=== PATIENT | female | born 1940 | race Caucasian/White ===

== ENCOUNTER 2018-04-22 08:31 | Inpatient (IN) | payer OTHER ==
[2018-04-22] VITALS (9 sets, daily range): BP systolic 124–169; BP diastolic 72–111
[~2018-04-22] VITALS: Ht 162.6 cm; Wt 64.0 kg
[~2018-04-22 08:31] MED LIST: ADVAIR 250/501 DISK IH; ASPIR 8181 M1 PO; ASPIRIN E.C.81 M1 PO; ATIVAN0.5 MG PO; ATIVAN1 MG PO; Aspirin E.C. PO; Ativan PO; B-121500 MCG PO; CARAFATE100 MG/ML PO; CATAPRES0.1 MG PO; COLACE100 MG PO; COREG3.125 M1 PO; COREG6.25 M1 PO; COUMADIN2 MG PO; COUMADIN5 MG PO; Colace PO; Coreg PO; DOCUSATE SODIU100 MG PO; Diflucan PO; Ditropan PO; DuoNeb IH; FERROUS SULFAT325 MG PO; HYDROCODON-ACE1 EAC7 PO; LASIX20 MG PO; LEXAPRO10 MG PO; LEXAPRO20 MG PO; LIPITOR40 MG PO; LORAZEPAM0.5 MG PO; LORCET PLUS PO; LOVENOX60 MG/0.6 SC; Lasix PO; Levaquin PO; Lipitor PO; MAVIK4 MG PO; MILK OF MAGNESI10 ML PO; Maalox, Mylanta PO; Mavik PO; NEXIUM20 MG PO; NEXIUM40 MG PO; NITROSTAT0.4 MG SL; NORVASC10 MG PO; Nitrostat,NitroQuick SL; OxyCODONE PO; PANTOPRAZOLE SO40 MG PO; POLYETHYLENE GL17 GM PO; PRINIVIL10 MG PO; PROTONIX40 MG PO; PT/INR; Protonix PO; SENNA8.6 M1 PO; SPIRIVA1 INHALATI IH; SYMBICORT60 INHALA1 IH; Senokot,Sennagen PO; TOPROL XL50 MG PO; TYLENOL REGULA325 MG PO; Toprol XL PO; Vicodin,Lortab 5/500 PO; WYGESIC,DARV1 TABLET PO; XARELTO15 MG PO; Xarelto PO; ZOFRAN4 MG PO; Zestril,Prinivil PO; [UNRECOGNIZED DRUG - OTHER] PO; oxyCODONE PO; predniSONE PO
[2018-04-22 09:01] LABS: BASOPHIL (%) 0.8 % (0-1); BASOPHIL COUNT 0.1 K/uL (0-0.1); EOSINOPHIL (%) 3.2 % (0-5); EOSINOPHIL COUNT 0.4 K/uL (0-0.3); HEMATOCRIT 41.9 % (36.0-46.0); HEMOGLOBIN 14.2 G/DL (11.9-15.5); IMMATURE GRANULOCYTE (%) 0.5 % (0.0-0.7); LYMPHOCYTE (%) 30.5 % (15-42); LYMPHOCYTE COUNT 3.6 K/uL (1.0-2.8); MCH 32.7 PG (29.0-34.0); MCHC 33.9 G/DL (30.0-36.0); MCV 96.5 FL (83-99); MONOCYTE (%) 6.7 % (3-12); MONOCYTE COUNT 0.8 K/uL (0-0.8); NEUTROPHIL (%) 58.3 % (45-76); NEUTROPHIL COUNT 6.9 K/uL (1.8-6.4); PLATELET COUNT 277 K/uL (156-360); RBC DIS.WIDTH-SD 46.5 % (39-53); RED BLOOD COUNT 4.34 M/uL (3.80-5.20); WHITE BLOOD COUNT 11.9 K/uL (4.1-10.2)
[2018-04-22 09:13] LABS: CHLORIDE 97 mEq/L (99-109); GLUCOSE 248 mg/dL (70-99); POTASSIUM 4.3 mEq/L (3.7-5.4); SODIUM 136 mEq/L (136-147)
[2018-04-22 09:16] LABS: INTER. NORMALIZED RATIO 1.1; SERUM ETHYL ALCOHOL < 10 mg/dL
[2018-04-22 09:17] LABS: CREATININE 1.1 mg/dL (0.6-1.3); GFR ESTIMATE (CALCULATED) 51 mL/min/
[2018-04-22 09:18] LABS: UREA NITROGEN (BUN) 12 mg/dL (9-23)
[2018-04-22 09:20] LABS: LIPASE 15 U/L (1.0-51.0)
[2018-04-22 09:22] LABS: TROP-I INTERPRETATION NEGATIVE; TROPONIN-I 0.12 ng/mL (0.0-0.30)
[2018-04-22 12:04] LABS: APPEARANCE CLEAR ((CLEAR)); BILIRUBIN NEGATIVE; BLOOD NEGATIVE; COLOR STRAW ((YELLOW)); GLUCOSE (STRIP) NEGATIVE; KETONES NEGATIVE; LEUKOCYTES LARGE; NITRITE NEGATIVE; PROTEIN (STRIP) 30; SPECIFIC GRAVITY 1.006 (1.000-1.030); UROBILINOGEN 0.2 MG/DL (0.2-1.0)
[2018-04-22 12:09] LABS: BACTERIA NONE SEEN /HPF; EPITHELIAL CELLS RARE /HPF; MUCUS NONE SEEN /LPF; RED BLOOD CELLS 0-5 /HPF (0-5); UCUL ADDED? YES; WHITE BLOOD CELLS 15-20 /HPF (0-5)
[2018-04-22 12:13] LABS: AMPHETAMINE NEGATIVE (500 ng/mL); BARBITURATES NEGATIVE (200 ng/mL); BENZODIAZEPINES PRESUMPTIVE POSITIVE (150 ng/mL); BUPRENORPHINE NEGATIVE (10 ng/mL); COCAINE NEGATIVE (150 ng/mL); METHADONE NEGATIVE (200 ng/mL); METHAMPHETAMINE NEGATIVE (500 ng/mL); OPIATES (MORPHINE) PRESUMPTIVE POSITIVE (100 ng/mL); OXYCODONE NEGATIVE (100 ng/mL); PHENCYCLIDINE NEGATIVE (25 ng/mL); PROPOXYPHENE NEGATIVE (300 ng/mL); THC CANNABINOIDS NEGATIVE (50 ng/mL); TRICYCLIC ANTIDEPRESSANTS NEGATIVE (300 ng/mL)
[2018-04-22 13:02] LABS: BENZODIAZEPINES, URINE SCREEN Negative (200 ng/mL)
[2018-04-23] VITALS (22 sets, daily range): BP systolic 111–165; BP diastolic 64–98
[2018-04-23 00:54] LABS: TROP-I INTERPRETATION INDETERMINATE; TROPONIN-I 0.36 ng/mL (0.0-0.30)
[2018-04-23 04:50] LABS: HEMATOCRIT 37.6 % (36.0-46.0); MCH 32.5 PG (29.0-34.0); MCHC 34.6 G/DL (30.0-36.0); PLATELET COUNT 201 K/uL (156-360); RBC DIS.WIDTH-SD 44.8 % (39-53); WHITE BLOOD COUNT 9.5 K/uL (4.1-10.2)
[2018-04-23 05:05] LABS: ALBUMIN 3.7 g/dL (3.2-4.8); CHLORIDE 102 mEq/L (99-109); POTASSIUM 4.1 mEq/L (3.7-5.4); SODIUM 137 mEq/L (136-147)
[2018-04-23 05:07] LABS: GLUCOSE 145 mg/dL (70-99); TOTAL PROTEIN 6.5 g/dL (6.4-8.3)
[2018-04-23 05:11] LABS: ALKALINE PHOSPHATASE 88 IU/L (3-129); CREATININE 0.9 mg/dL (0.6-1.3); GFR ESTIMATE (CALCULATED) > 59 mL/min/; TROP-I INTERPRETATION INDETERMINATE; TROPONIN-I 0.37 ng/mL (0.0-0.30)
[2018-04-23 05:12] LABS: UREA NITROGEN (BUN) 15 mg/dL (9-23)
[2018-04-23 05:13] LABS: AST (GOT) 34 IU/L (2-34)
[2018-04-23 05:14] LABS: ALT (GPT) 29 IU/L (3-49)
[2018-04-24] VITALS (13 sets, daily range): BP systolic 130–175; BP diastolic 66–134
[2018-04-24 06:09] LABS: BASOPHIL (%) 0.1 % (0-1); EOSINOPHIL (%) 0.1 % (0-5); HEMATOCRIT 39.1 % (36.0-46.0); HEMOGLOBIN 12.9 G/DL (11.9-15.5); IMMATURE GRANULOCYTE (%) 0.8 % (0.0-0.7); LYMPHOCYTE (%) 3.6 % (15-42); LYMPHOCYTE COUNT 0.5 K/uL (1.0-2.8); MCH 31.7 PG (29.0-34.0); MCV 96.1 FL (83-99); MONOCYTE (%) 2.3 % (3-12); MONOCYTE COUNT 0.3 K/uL (0-0.8); NEUTROPHIL (%) 93.1 % (45-76); NEUTROPHIL COUNT 12.6 K/uL (1.8-6.4); PLATELET COUNT 212 K/uL (156-360); RBC DIS.WIDTH-CV 13.2 % (11.8-14.6); RBC DIS.WIDTH-SD 46.9 % (39-53); RED BLOOD COUNT 4.07 M/uL (3.80-5.20); WHITE BLOOD COUNT 13.5 K/uL (4.1-10.2)
[2018-04-24 06:39] LABS: CHLORIDE 98 MEQ/L (99-109); CREATININE 0.9 MG/DL (0.6-1.3); GFR ESTIMATE (CALCULATED) > 59 mL/min/; GLUCOSE 141 mg/dL (70-99); POTASSIUM 4.4 MEQ/L (3.7-5.4); SODIUM 135 MEQ/L (136-147)
[2018-04-24 06:40] LABS: UREA NITROGEN (BUN) 24 mg/dL (9-23)
[2018-04-25 00:21] VITALS: BP 146/74
[2018-04-25 03:54] VITALS: BP 158/84
[2018-04-25 07:38] VITALS: BP 149/90
[2018-04-25 11:10] LABS: HEMATOCRIT 39.1 % (36.0-46.0); HEMOGLOBIN 13.1 G/DL (11.9-15.5); MCH 32.2 PG (29.0-34.0); MCHC 33.5 G/DL (30.0-36.0); MCV 96.1 FL (83-99); PLATELET COUNT 226 K/uL (156-360); RBC DIS.WIDTH-CV 13.3 % (11.8-14.6); RBC DIS.WIDTH-SD 47.8 % (39-53); RED BLOOD COUNT 4.07 M/uL (3.80-5.20); WHITE BLOOD COUNT 12.1 K/uL (4.1-10.2)
[2018-04-25 11:36] LABS: CHLORIDE 98 MEQ/L (99-109); CREATININE 0.9 MG/DL (0.6-1.3); GFR ESTIMATE (CALCULATED) > 59 mL/min/; GLUCOSE 141 mg/dL (70-99); POTASSIUM 3.8 MEQ/L (3.7-5.4); SODIUM 139 MEQ/L (136-147); UREA NITROGEN (BUN) 27 mg/dL (9-23)
[2018-04-25 12:01] VITALS: BP 147/88
[2018-04-25 15:15] VITALS: BP 150/89
[2018-04-25 17:36] LABS: HEMATOCRIT 40.2 % (36.0-46.0); HEMOGLOBIN 13.7 G/DL (11.9-15.5); MCV 96.4 FL (83-99)
[2018-04-25 19:50] VITALS: BP 164/100
[2018-04-26 00:58] VITALS: BP 129/64
[2018-04-26 03:50] VITALS: BP 153/82
[2018-04-26 07:42] VITALS: BP 161/91
[2018-04-26 11:14] LABS: HEMOGLOBIN 12.7 G/DL (11.9-15.5); MCHC 33.4 G/DL (30.0-36.0); MCV 95.7 FL (83-99); NRBC (%) 0.2 /100 WBC (0-0); PLATELET COUNT 214 K/uL (156-360); RBC DIS.WIDTH-CV 13.2 % (11.8-14.6); RBC DIS.WIDTH-SD 46.7 % (39-53); RED BLOOD COUNT 3.97 M/uL (3.80-5.20); WHITE BLOOD COUNT 9.8 K/uL (4.1-10.2)
[2018-04-26 11:41] LABS: CHLORIDE 99 MEQ/L (99-109); CREATININE 0.9 MG/DL (0.6-1.3); GFR ESTIMATE (CALCULATED) > 59 mL/min/; GLUCOSE 173 mg/dL (70-99); POTASSIUM 3.9 MEQ/L (3.7-5.4); SODIUM 137 MEQ/L (136-147); UREA NITROGEN (BUN) 24 mg/dL (9-23)
[2018-04-26] MEDS ORDERED: VENTOLIN HFA18 GM IH (14:13)
[2018-04-26] MEDS ORDERED: LO-DOSE ASPIRIN81 M1 PO (14:14)
[2018-04-26] MEDS ORDERED: COLACE100 MG PO (14:15)
[2018-04-26] MEDS ORDERED: PROTONIX40 MG PO (14:16)
[2018-04-26] MEDS ORDERED: NORCO 5/3251 TABLET PO (14:17)
[2018-04-26] MEDS ORDERED: NEOSPORIN + P28.3 GM TP (14:19)
[2018-04-26 14:53] VITALS: BP 149/82
[2018-04-27 00:18] VITALS: BP 169/76
[2018-04-27 06:41] LABS: BASOPHIL (%) 0.1 % (0-1); EOSINOPHIL (%) 0.1 % (0-5); HEMATOCRIT 44.3 % (36.0-46.0); IMMATURE GRANULOCYTE (%) 0.5 % (0.0-0.7); LYMPHOCYTE (%) 16.3 % (15-42); LYMPHOCYTE COUNT 1.9 K/uL (1.0-2.8); MCH 32.3 PG (29.0-34.0); MCHC 33.9 G/DL (30.0-36.0); MCV 95.3 FL (83-99); MONOCYTE (%) 7.3 % (3-12); MONOCYTE COUNT 0.9 K/uL (0-0.8); NEUTROPHIL (%) 75.7 % (45-76); NEUTROPHIL COUNT 8.9 K/uL (1.8-6.4); PLATELET COUNT 278 K/uL (156-360); RBC DIS.WIDTH-CV 13.2 % (11.8-14.6); RBC DIS.WIDTH-SD 46.5 % (39-53); RED BLOOD COUNT 4.65 M/uL (3.80-5.20); WHITE BLOOD COUNT 11.7 K/uL (4.1-10.2)
[2018-04-27 06:51] LABS: CHLORIDE 95 MEQ/L (99-109); CREATININE 0.9 MG/DL (0.6-1.3); GFR ESTIMATE (CALCULATED) > 59 mL/min/; POTASSIUM 4.3 MEQ/L (3.7-5.4); SODIUM 138 MEQ/L (136-147); UREA NITROGEN (BUN) 22 mg/dL (9-23)
[2018-04-27 07:05] LABS: GLUCOSE 105 mg/dL (70-99)
[2018-04-27 07:39] VITALS: BP 164/90
[2018-04-27 16:16] VITALS: BP 125/69
[2018-04-28 01:05] VITALS: BP 150/75
[2018-04-28 04:00] VITALS: BP 132/78
[2018-04-28 08:11] VITALS: BP 130/90
[2018-04-28 11:02] VITALS: BP 140/90
[2018-04-28] MEDS ORDERED: PREDNISONE10 MG PO (12:50)
[2018-04-28] MEDS ORDERED: DULERA 100 MCG/13 GM IH (12:50)
[2018-04-28] MEDS ORDERED: ATORVASTATIN CA40 MG PO (12:53)
[2018-04-28] MEDS ORDERED: DOXYCYCLINE HY100 MG PO (12:59)
[2018-04-28 15:29] VITALS: BP 140/90
== END 2018-04-28 20:04 | DRG 177 ==
LOC: EME → EDBD 08:31 → EME 08:31 → 5SOUTH 12:35 → 4WEST 12:35 → EDOF 12:35 → ENRESERV 12:36 → 4WEST 14:27 → ENRESERV 04-24 14:05 → 5SOUTH 04-24 15:38
PROVIDERS: Emergency Medicine; Hospitalist; Internal Medicine Critical Care Medicine; Physician Assistant Medical
PROC: 5A09357 Assistance with Respiratory Ventilation, Less than 24 Consecutive Hours, Continuous Positive Airway Pressure (ICD-10-PCS; principal; 2018-04-22)
DX: J15.212 Pneumonia due to Methicillin resistant Staphylococcus aureus (principal); J44.0 Chronic obstructive pulmonary disease with (acute) lower respiratory infection; J18.0 Bronchopneumonia, unspecified organism; J44.1 Chronic obstructive pulmonary disease with (acute) exacerbation; J96.21 Acute and chronic respiratory failure with hypoxia; I21.A1 Myocardial infarction type 2; E87.3 Alkalosis; I11.0 Hypertensive heart disease with heart failure; I50.9 Heart failure, unspecified; F41.9 Anxiety disorder, unspecified; G43.909 Migraine, unspecified, not intractable, without status migrainosus; I25.10 Atherosclerotic heart disease of native coronary artery without angina pectoris; E78.5 Hyperlipidemia, unspecified; K21.9 Gastro-esophageal reflux disease without esophagitis; I42.9 Cardiomyopathy, unspecified; I71.4 Abdominal aortic aneurysm, without rupture; I27.20 Pulmonary hypertension, unspecified; I08.3 Combined rheumatic disorders of mitral, aortic and tricuspid valves; G89.29 Other chronic pain; R10.84 Generalized abdominal pain; Z88.5 Allergy status to narcotic agent; Z91.041 Radiographic dye allergy status; Z87.891 Personal history of nicotine dependence; Z99.81 Dependence on supplemental oxygen; Z86.73 Personal history of transient ischemic attack (TIA), and cerebral infarction without residual deficits; I25.2 Old myocardial infarction
CPT/HCPCS: 71045; 74176; 80048; 80053; 80202; 81003; 82150; 83605; 83690; 83880; 84145 90; 84484; 84999; 85014; 85018; 85025; 85027; 85610; 85730; 86850; 86900; 86901; 87040; 87070; 87077; 87086; 87147; 87186; 87205; 87449; 87641; 93005; 93306; 94002; 94640; 94669; 94799; 97530 GP; 99281; 99285; G0480; J0456; J0692; J0696; J1650; J1885; J1940; J2405; J2920; J2930; J3370; J7030; J7512

== ENCOUNTER 2018-05-27 07:52 | Inpatient (IN) | payer OTHER ==
[~2018-05-27] VITALS: Ht 167.6 cm; Wt 59.0 kg
[~2018-05-27 07:52] MED LIST changes: +ATORVASTATIN CA40 MG PO; -B-121500 MCG PO; +DOXYCYCLINE HY100 MG PO; +DULERA 100 MCG/13 GM IH; +LO-DOSE ASPIRIN81 M1 PO; +NEOSPORIN + P28.3 GM TP; +NORCO 5/3251 TABLET PO; +OMEPRAZOLE20 MG PO; +PREDNISONE10 MG PO; +VENTOLIN HFA18 GM IH; +VITAMIN B-121000 MC1 SL
[2018-05-27 08:25] LABS: BASOPHIL (%) 0.5 % (0-1); EOSINOPHIL (%) 1.4 % (0-5); EOSINOPHIL COUNT 0.1 K/uL (0-0.3); HEMATOCRIT 37.2 % (36.0-46.0); HEMOGLOBIN 12.5 G/DL (11.9-15.5); IMMATURE GRANULOCYTE (%) 0.7 % (0.0-0.7); LYMPHOCYTE (%) 19.3 % (15-42); LYMPHOCYTE COUNT 1.7 K/uL (1.0-2.8); MCH 32.5 PG (29.0-34.0); MCHC 33.6 G/DL (30.0-36.0); MCV 96.6 FL (83-99); MONOCYTE (%) 7.4 % (3-12); MONOCYTE COUNT 0.7 K/uL (0-0.8); NEUTROPHIL (%) 70.7 % (45-76); NEUTROPHIL COUNT 6.3 K/uL (1.8-6.4); RBC DIS.WIDTH-CV 13.8 % (11.8-14.6); RBC DIS.WIDTH-SD 49.2 % (39-53); RED BLOOD COUNT 3.85 M/uL (3.80-5.20); WHITE BLOOD COUNT 8.8 K/uL (4.1-10.2)
[2018-05-27 08:30] LABS: PLATELET COUNT 415 K/uL (156-360)
[2018-05-27 08:30] LABS: COMMENTS - BLOOD GASES A+C+; CONTINUOUS POS AIRWAY PRESSURE 5 cm H2O; DEVICE 980; FI02 100 %; MODE SPONT; PRES. SUPPORT 12 CM/H2O; SITE LR; TOTAL RESP RATE 21 resp/min
[2018-05-27 08:31] LABS: BASE EXCESS -1.5 mEq/L (-3 to +3); BICARBONATE 26.3 mEq/L (22-26); CARBOXY HGB 1.4 % (0-5); METHEMOGLOBIN 0.9 % (0-1.5); PCO2 56 mm Hg (35-45); PO2 316 mm Hg (80-100)
[2018-05-27 08:32] LABS: pH 7.28 (7.35-7.45)
[2018-05-27 08:47] LABS: INTER. NORMALIZED RATIO 1.1
[2018-05-27 08:50] LABS: PTT 26.3 SEC (25-37)
[2018-05-27 08:53] LABS: CHLORIDE 100 MEQ/L (99-109); CREATININE 0.8 MG/DL (0.6-1.3); GFR ESTIMATE (CALCULATED) > 59 mL/min/; GLUCOSE 212 mg/dL (70-99); POTASSIUM 3.8 MEQ/L (3.7-5.4); SODIUM 137 MEQ/L (136-147); UREA NITROGEN (BUN) 13 mg/dL (9-23)
[2018-05-27 08:55] LABS: TROP-I INTERPRETATION NEGATIVE; TROPONIN-I 0.02 ng/mL (0.0-0.30)
[2018-05-27 10:49] LABS: COMMENTS - BLOOD GASES A+C+; SITE LR
[2018-05-27 10:50] LABS: DEVICE NC; O2 FLOW 6 L/MIN; PCO2 47 mm Hg (35-45); PO2 63 mm Hg (80-100); TOTAL RESP RATE 24 resp/min; pH 7.39 (7.35-7.45)
[2018-05-27 10:51] LABS: BASE EXCESS 2.8 mEq/L (-3 to +3); BICARBONATE 28.5 mEq/L (22-26); CARBOXY HGB 1.5 % (0-5); METHEMOGLOBIN 1.4 % (0-1.5)
[2018-05-27] MEDS ORDERED: DULCOLAX10 MG PR (10:56)
[2018-05-27] MEDS ORDERED: FLEET ENEMA-AD118 ML PR (10:57)
[2018-05-27] MEDS ORDERED: MILK OF MAGN PO (10:58)
[2018-05-27] MEDS ORDERED: TRAZODONE HCL50 MG PO (11:00)
[2018-05-27] MEDS ORDERED: TYLENOL REGULA325 MG PO (11:01)
[2018-05-27 11:39] VITALS: BP 145/81
[2018-05-27 15:35] VITALS: BP 145/81
[2018-05-27 20:10] VITALS: BP 144/75
[2018-05-28] VITALS (7 sets, daily range): BP systolic 124–156; BP diastolic 65–84
[2018-05-28 15:15] LABS: TROP-I INTERPRETATION INDETERMINATE; TROPONIN-I 0.37 ng/mL (0.0-0.30)
[2018-05-28 22:21] LABS: TROP-I INTERPRETATION NEGATIVE; TROPONIN-I 0.24 ng/mL (0.0-0.30)
[2018-05-29] VITALS (7 sets, daily range): BP systolic 141–176; BP diastolic 69–92
[2018-05-29 06:15] LABS: TROP-I INTERPRETATION NEGATIVE; TROPONIN-I 0.18 ng/mL (0.0-0.30)
[2018-05-30 03:42] VITALS: BP 152/75
[2018-05-30 08:16] VITALS: BP 176/82
[2018-05-30 15:52] VITALS: BP 151/75
[2018-05-30 19:00] VITALS: BP 121/59
[2018-05-30 23:20] VITALS: BP 140/69
[2018-05-31 03:27] VITALS: BP 144/78
[2018-05-31 08:29] VITALS: BP 173/84
[2018-05-31 11:10] VITALS: BP 159/77
[2018-05-31] MEDS ORDERED: DUONEB 2.5-0.5 M3 ML PEP (13:03)
[2018-05-31] MEDS ORDERED: CEFTIN500 MG PO (13:05)
[2018-05-31] MEDS ORDERED: DEXAMETHASONE1 MG PO (13:06)
[2018-05-31] MEDS ORDERED: AMLODIPINE BESY10 MG PO (13:07)
[2018-05-31 15:49] VITALS: BP 159/77
== END 2018-05-31 17:30 | DRG 190 ==
LOC: EME 07:52 → EDOF 09:57 → 2EAST 09:57 → ENRESERV 10:07 → 2EAST 10:58
PROVIDERS: Emergency Medicine; Internal Medicine
PROC: 5A09357 Assistance with Respiratory Ventilation, Less than 24 Consecutive Hours, Continuous Positive Airway Pressure (ICD-10-PCS; principal; 2018-05-27)
DX: J44.1 Chronic obstructive pulmonary disease with (acute) exacerbation (principal); J96.01 Acute respiratory failure with hypoxia; C34.11 Malignant neoplasm of upper lobe, right bronchus or lung; I21.A1 Myocardial infarction type 2; I11.0 Hypertensive heart disease with heart failure; I50.32 Chronic diastolic (congestive) heart failure; K21.9 Gastro-esophageal reflux disease without esophagitis; F41.9 Anxiety disorder, unspecified; F32.9 Major depressive disorder, single episode, unspecified; E78.5 Hyperlipidemia, unspecified; G43.909 Migraine, unspecified, not intractable, without status migrainosus; I25.10 Atherosclerotic heart disease of native coronary artery without angina pectoris; I42.9 Cardiomyopathy, unspecified; G89.29 Other chronic pain; M54.9 Dorsalgia, unspecified; I71.4 Abdominal aortic aneurysm, without rupture; E11.51 Type 2 diabetes mellitus with diabetic peripheral angiopathy without gangrene; Z99.81 Dependence on supplemental oxygen; Z95.820 Peripheral vascular angioplasty status with implants and grafts; Z79.82 Long term (current) use of aspirin; Z88.1 Allergy status to other antibiotic agents; I25.2 Old myocardial infarction; Z91.041 Radiographic dye allergy status; Z86.73 Personal history of transient ischemic attack (TIA), and cerebral infarction without residual deficits; Z88.5 Allergy status to narcotic agent; Z87.891 Personal history of nicotine dependence; Z95.1 Presence of aortocoronary bypass graft; Z86.718 Personal history of other venous thrombosis and embolism
CPT/HCPCS: 36600; 71045; 71250; 80048; 83880; 84484; 85025; 85610; 85730; 87641; 93005; 94002; 94640; 94799; 99281; 99285; J0696; J1100; J1644; J1940; J2930; J7512; J8540